=== PATIENT | female | born 1995 | race African-American/Black ===

== ENCOUNTER 2017-09-17 23:18 | Emergency (ER) | payer SELFPAY ==
[2017-09-18 00:11] LABS: ABSOLUTE BASOPHILS # (AUTO) 0.1 10^3/uL (0.0-0.2); ABSOLUTE EOSINOPHILS # (AUTO) 0.2 10^3/uL (0.0-0.6); ABSOLUTE LYMPHOCYTES (AUTO) 2.6 10^3/uL (0.5-4.7); ABSOLUTE MONOCYTES (AUTO) 0.4 10^3/uL (0.1-1.4); ABSOLUTE NEUT (AUTO) 2.9 10^3/uL (1.7-8.2); EOSINOPHILS % (AUTO) 2.8 % (0-6); HEMATOCRIT 37.4 % (36.0-47.0); HEMOGLOBIN 12.4 g/dL (12.0-15.5); LYMPHOCYTES % (AUTO) 42.1 % (13-45); MEAN CORPUSCULAR HEMOGLOBIN 27.2 pg (27.0-33.4); MEAN CORPUSCULAR VOLUME 82 fl (80-97); MONOCYTES % (AUTO) 6.1 % (3-13); PLATELET COUNT 238 10^3/uL (150-450); RED BLOOD COUNT 4.54 10^6/uL (3.72-5.28); RED CELL DISTRIBUTION WIDTH 16.1 % (11.5-14.0); TOTAL CELLS COUNTED % (AUTO) 100 %; WHITE BLOOD COUNT 6.1 10^3/uL (4.0-10.5)
[2017-09-18 00:26] LABS: ALANINE AMINOTRANSFERASE 26 U/L (9-52); ALBUMIN 3.6 g/dL (3.5-5.0); ALKALINE PHOSPHATASE 47 U/L (38-126); ANION GAP 5 (5-19); ASPARTATE AMINO TRANSFERASE 33 U/L (14-36); BILIRUBIN,DIRECT 0.2 mg/dL (0.0-0.4); BILIRUBIN,TOTAL 0.2 mg/dL (0.2-1.3); BLOOD UREA NITROGEN 12 mg/dL (7-20); CALCIUM 9.3 mg/dL (8.4-10.2); CARBON DIOXIDE 29 mmol/L (22-30); CHLORIDE 107 mmol/L (98-107); GLUCOSE 99 mg/dL (75-110); POTASSIUM 4.3 mmol/L (3.6-5.0); TOTAL PROTEIN 6.4 g/dL (6.3-8.2)
[2017-09-18 00:50] LABS: BILIRUBIN,URINE NEGATIVE (NEGATIVE); COLOR,URINE YELLOW; GLUCOSE, URINE NEGATIVE (NEGATIVE); KETONES,URINE NEGATIVE (NEGATIVE); LEUKOCYTE ESTERASE,URINE NEGATIVE (NEGATIVE); NITRITE,URINE NEGATIVE (NEGATIVE); PROTEIN,URINE NEGATIVE (NEGATIVE); UROBILINOGEN,URINE NEGATIVE mg/dL (<2.0)
[2017-09-18 00:51] LABS: APPEARANCE,URINE CLEAR
--- NOTE | 2017-09-18 01:00 | ER Document Report ---
ED General - General Chief Complaint: Abdominal Pain Stated Complaint: ABDOMINAL PAIN Time Seen by Provider: 09/17/17 23:52 Mode of Arrival: Ambulatory Information source: Patient Notes: Patient presents emergency department with complaints of chronic abdominal pain. She reports pain from her incision. Denies fever vomiting diarrhea. Reports she is eating drinking as normal. Denies vaginal discharge, denies pain with void. Reports she wasn't going to come here but since she brought her son here for a fever she thought she would have it checked out. Reports she has had her [employer] look at it before and has been told that it is scar tissue. - HPI Onset: Other Onset/Duration: Persistent, Waxing and waning Severity: None Pain Level: Denies - denies pain now Associated symptoms: None Exacerbated by: Denies Relieved by: Denies Similar symptoms previously: Yes Recently seen / treated by doctor: No - Related Data Allergies/Adverse Reactions: Penicillins Allergy (Verified 09/17/17 23:28) Past Medical History - General Information source: Patient Last Menstrual Period: 08/27/17 - Social History Smoking Status: Current Every Day Smoker Cigarette use (# per day): Yes Chew tobacco use (# tins/day): No Frequency of alcohol use: Occasional Drug Abuse: None Lives with: Family Family History: Reviewed & Not Pertinent Patient has suicidal ideation: No Patient has homicidal ideation: No Pulmonary Medical History: Reports: Hx Asthma Renal/ Medical History: Denies: Hx Peritoneal Dialysis Past Surgical History: Reports: Hx Section - 1, Hx Tonsillectomy Review of Systems - Review of Systems Notes: Review HPI for review of systems., All other systems negative Physical Exam - Vital signs Vitals: Temp Pulse Resp BP Pulse Ox 98.5 F 67 18 133/81 H 97 09/17/17 23:32 09/17/17 23:32 09/17/17 23:32 09/17/17 23:32 09/17/17 23:32 - Notes Notes: PHYSICAL EXAMINATION: GENERAL: Well-appearing and in no acute distress HEAD: Atraumatic, normocephalic. EYES: Pupils equal round and reactive to light, extraocular movements intact, sclera anicteric, conjunctiva are normal. ENT: nares patent, oropharynx clear without exudates. Moist mucous membranes. NECK: Normal range of motion, supple without lymphadenopathy LUNGS: CTAB and equal. No wheezes rales or rhonchi. HEART: Regular rate and rhythm without murmurs ABDOMEN: Soft, no tenderness. No guarding, no rebound no erythema, warmth, no tenderness with palpation EXTREMITIES: Normal range of motion, no pitting edema. No cyanosis. NEUROLOGICAL: Cranial nerves grossly intact. Normal sensory/motor exams. PSYCH: Normal mood, normal affect. SKIN: Warm, Dry, normal turgor, no rashes or lesions noted Course - Re-evaluation Re-evalutation: 09/18/17 this seems to be a chronic issue, pt denies pain at this time, labs unremarkable , pt was instructed to fu with pcp for further c/o. - Vital Signs Vital signs: Temp Pulse Resp BP Pulse Ox 98.6 F 89 19 128/78 H 99 09/18/17 02:00 09/18/17 02:00 09/18/17 02:00 09/18/17 02:00 09/18/17 02:00 - Laboratory Result Diagrams: 09/17/17 23:59 09/17/17 23:59 Laboratory results interpreted by me: 09/17/17 23:59 RDW 16.1 H Discharge - Discharge Clinical Impression: Abdominal pain, Elevated blood pressure reading Condition: Stable Disposition: HOME, SELF-CARE Instructions: Abdominal Pain ([facility]) Additional Instructions: *You have been evaluated for abdominal pain *Follow up with your primary care provider within one week for recheck *Return to ED for worsening condition, changes, needs Forms: Elevated Blood Pressure
[2017-09-18 02:01] VITALS: BP 128/78
--- NOTE | 2017-09-19 12:37 | EKG REPORT ---
SEVERITY:- ABNORMAL ECG - SINUS RHYTHM ABNORMAL Q SUGGESTS ANTERIOR INFARCT : Confirmed by: Rosa M Sousa MD 19-Sep-2017 12:36:38
== END 2017-09-18 02:01 | disposition home or self-care (01) ==
LOC: ER 23:18
DX: R10.9 Unspecified abdominal pain (principal); R03.0 Elevated blood-pressure reading, without diagnosis of hypertension; F17.210 Nicotine dependence, cigarettes, uncomplicated; J45.909 Unspecified asthma, uncomplicated; Z98.890 Other specified postprocedural states; Z88.0 Allergy status to penicillin
CPT/HCPCS: 36415; 80053; 81001; 84703; 85025; 93005; 93010; 99284

== ENCOUNTER 2017-10-25 21:43 | Emergency (ER) | payer SELFPAY ==
--- NOTE | 2017-10-26 00:46 | ER Document Report ---
ED Medical Screen (RME) - General Chief Complaint: Headache Stated Complaint: HEADACHE,BLOOD PRESSURE PROBLEM Time Seen by Provider: 10/26/17 00:43 Mode of Arrival: Ambulatory Information source: Patient Notes: 22-year-old female presents to ED for complaint headache that started earlier today. She states she took some Excedrin before going to work and then around 7 PM she started having blurred vision but the blurred vision is gone now she just has a mild headache. She states she has not had any nausea or vomiting. I have greeted and performed a rapid initial assessment of this patient. A comprehensive ED assessment and evaluation of the patient, analysis of test results and completion of medical decision making process will be conducted by an additional ED providers. TRAVEL OUTSIDE OF THE [place] IN LAST 30 DAYS: No - Related Data Allergies/Adverse Reactions: Penicillins Allergy (Verified 09/17/17 23:28) Past Medical History Pulmonary Medical History: Reports: Hx Asthma Renal/ Medical History: Denies: Hx Peritoneal Dialysis Past Surgical History: Reports: Hx Section - 1, Hx Tonsillectomy
[2017-10-26] MEDS ORDERED: DIPHENHYDRAMINE HCL 50 MG CAPSULE PO ONE (00:53)
[2017-10-26] MEDS ORDERED: METOCLOPRAMIDE HCL 10 MG TABLET PO ONE (00:53)
--- NOTE | 2017-10-26 00:55 | ER Document Report ---
ED Headache - General Chief Complaint: Headache Stated Complaint: HEADACHE,BLOOD PRESSURE PROBLEM Time Seen by Provider: 10/26/17 00:43 Mode of Arrival: Ambulatory Information source: Patient Notes: Patient is a 22-year-old female who presents to the ER today for headache that started today. Patient states she has a history of headaches but she does not take anything for it. Patient states that she does not even really want to be here but that her work made her come because they were worried about her headache. She denies any dizziness, nausea, vomiting, fever, chills, neck pain or any other symptoms. TRAVEL OUTSIDE OF THE [place] IN LAST 30 DAYS: No - Related Data Allergies/Adverse Reactions: Penicillins Allergy (Verified 09/17/17 23:28) Past Medical History - General Information source: Patient - Social History Smoking Status: Never Smoker Family History: Reviewed & Not Pertinent Pulmonary Medical History: Reports: Hx Asthma Renal/ Medical History: Denies: Hx Peritoneal Dialysis Past Surgical History: Reports: Hx Section - 1, Hx Tonsillectomy Review of Systems - Review of Systems Constitutional: No symptoms reported EENT: No symptoms reported Cardiovascular: No symptoms reported Respiratory: No symptoms reported Gastrointestinal: No symptoms reported Genitourinary: No symptoms reported Female Genitourinary: No symptoms reported Musculoskeletal: No symptoms reported Skin: No symptoms reported Hematologic/Lymphatic: No symptoms reported Neurological/Psychological: See HPI Physical Exam - Notes Notes: PHYSICAL EXAMINATION: GENERAL: Well-appearing and in no acute distress. HEAD: Atraumatic, normocephalic. EYES: Pupils equal round and reactive to light, extraocular movements intact, sclera anicteric, conjunctiva are normal. ENT: ear canals without erythema or foreign body, TMs pearly seals with good bony landmarks, nares patent, oropharynx clear without exudates. Moist mucous membranes. NECK: Normal range of motion, supple without lymphadenopathy LUNGS: CTAB and equal. No wheezes rales or rhonchi. HEART: Regular rate and rhythm without murmurs ABDOMEN: Soft, no tenderness. No guarding, no rebound BACK: no vertebral tenderness, normal ROM GI/: no CVA tenderness EXTREMITIES: Normal range of motion, no pitting edema. No cyanosis. NEUROLOGICAL: Cranial nerves grossly intact. Normal sensory/motor exams. Good and equal strength bilaterally, Kernig and Brudzinski's signs negative, Romberg' s test normal, normal heel to fry testing PSYCH: Normal mood, normal affect. SKIN: Warm, Dry, normal turgor, no rashes or lesions noted Course - Re-evaluation Re-evalutation: 10/26/17 00:54 Patient feels fine and would like to go home, she wants no further evaluation today. Discharge - Discharge Clinical Impression: Headache Qualifiers: Headache type: unspecified Headache chronicity pattern: acute headache Intractability: not intractable Qualified Code(s): R51 - Headache Condition: Stable Disposition: HOME, SELF-CARE Additional Instructions: Return immediately for any new or worsening symptoms. Follow up with primary care provider, call tomorrow to make followup appointment. Forms: Return to Work
[2017-10-26 01:27] VITALS: BP 157/86
== END 2017-10-26 01:27 | disposition home or self-care (01) ==
LOC: ER 21:43
DX: R51 Headache (principal); Z88.0 Allergy status to penicillin
CPT/HCPCS: 99284

== ENCOUNTER 2017-11-29 21:20 | Emergency (ER) | payer SELFPAY ==
--- NOTE | 2017-11-29 22:48 | RADIOLOGY REPORT (SQ) ---
EXAM DESCRIPTION: L SPINE WHOLE COMPLETED DATE/TIME: 11/29/2017 10:36 pm REASON FOR STUDY: BACK PAIN COMPARISON: None. NUMBER OF VIEWS: Five views including obliques. TECHNIQUE: AP, lateral, oblique, and sacral radiographic images acquired of the lumbar spine. LIMITATIONS: None. FINDINGS: MINERALIZATION: Normal. SEGMENTATION: Normal. No transitional anatomy. ALIGNMENT: Normal. VERTEBRAE: Maintained height. No fracture or worrisome bone lesion. DISCS: Preserved height. No significant osteophytes or end plate irregularity. POSTERIOR ELEMENTS: Pedicles and facets are intact. No pars defect or posterior arch defects. HARDWARE: None in the spine. PARASPINAL SOFT TISSUES: Normal. PELVIS: There is mild sclerosis on both sides of the right sacroiliac joint. OTHER: No other significant finding. IMPRESSION: Normal lumbar spine. Possible right sacroiliitis. TECHNICAL DOCUMENTATION: JOB ID: [id number] [employer]- All Rights Reserved Reading location - IP/workstation name: [email or web address]
[2017-11-29] MEDS ORDERED: METHOCARBAMOL 750 MG TABLET PO ONE (23:43)
[2017-11-29] MEDS ORDERED: TRAMADOL HCL 50 MG TABLET PO ONE (23:43)
--- NOTE | 2017-11-29 23:48 | ER Document Report ---
ED General - General Chief Complaint: Back Pain Stated Complaint: BACK PAIN Time Seen by Provider: 11/29/17 23:25 Mode of Arrival: Ambulatory Information source: Patient TRAVEL OUTSIDE OF THE [place] IN LAST 30 DAYS: No - HPI Notes: Patient presents with report of lower back pain with radiation down the right leg that she has had for several months. The patient has been seen at outside facility and reports she had a CT scan which showed an old coccyx fracture and evidence for a L5 disc herniation, but she has not had a MRI performed. She denies any incontinence or motor weakness or abdominal pain or dysuria. She denies any recent trauma. The patient reports no fever or chills. She states that heavy lifting and sitting an extended period of time makes her pain worse. The patient does smoke. The patient denies any chest pain or difficulty breathing. - Related Data Allergies/Adverse Reactions: Penicillins Allergy (Verified 09/17/17 23:28) Past Medical History - General Information source: Patient - Social History Smoking Status: Current Every Day Smoker Chew tobacco use (# tins/day): No Frequency of alcohol use: Social Drug Abuse: None Lives with: Family Family History: Reviewed & Not Pertinent Patient has suicidal ideation: No Patient has homicidal ideation: No Pulmonary Medical History: Reports: Hx Asthma Renal/ Medical History: Denies: Hx Peritoneal Dialysis Past Surgical History: Reports: Hx Section - 3, Hx Tonsillectomy Review of Systems - Review of Systems Notes: REVIEW OF SYSTEMS: CONSTITUTIONAL : Denies fever, chills, or sweats. Denies recent illness. EENT: Denies eye, ear, throat, or mouth pain or symptoms. Denies nasal or sinus congestion or discharge. Denies throat, tongue, or mouth swelling or difficulty swallowing. CARDIOVASCULAR: Denies chest pain. Denies palpitations or racing or irregular heart beat. Denies ankle edema. RESPIRATORY: Denies cough, cold, or chest congestion. Denies shortness of breath, difficulty breathing, or wheezing. GASTROINTESTINAL: Denies abdominal pain or distention. Denies nausea, vomiting , or diarrhea. Denies blood in vomitus, stools, or per rectum. Denies black, tarry stools. Denies constipation. GENITOURINARY: Denies difficulty urinating, painful urination, burning, frequency, blood in urine, or discharge. FEMALE GENITOURINARY: Denies vaginal bleeding, heavy or abnormal periods, irregular periods. Denies vaginal discharge or odor. MUSCULOSKELETAL: Denies neck pain or stiffness. Denies joint pain or swelling. SKIN: Denies rash, lesions or sores. HEMATOLOGIC : Denies easy bruising or bleeding. LYMPHATIC: Denies swollen, enlarged glands. NEUROLOGICAL: Denies confusion or altered mental status. Denies passing out or loss of consciousness. Denies dizziness or lightheadedness. Denies headache. Denies weakness or paralysis or loss of use of either side. Denies problems with gait or speech. Denies sensory loss, numbness, or tingling. Denies seizures. PSYCHIATRIC: Denies anxiety or stress. Denies depression, suicidal ideation, or homicidal ideation. ALL OTHER SYSTEMS REVIEWED AND NEGATIVE. Dictation was performed using [employer] voice recognition software Physical Exam - Vital signs Vitals: Temp Pulse Resp BP Pulse Ox 97.7 F 69 16 148/83 H 100 11/29/17 22:17 11/29/17 22:17 11/29/17 22:17 11/29/17 22:17 11/29/17 22:17 - Notes Notes: PHYSICAL EXAMINATION: GENERAL: Well-appearing, well-nourished and in no acute distress. HEAD: Atraumatic, normocephalic. EYES: Pupils equal round and reactive to light, extraocular movements intact, conjunctiva are normal. ENT: Nares patent, oropharynx clear without exudates. Moist mucous membranes. NECK: Normal range of motion, supple without lymphadenopathy LUNGS: Breath sounds clear to auscultation bilaterally and equal. No wheezes rales or rhonchi. HEART: Regular rate and rhythm without murmurs ABDOMEN: Soft, nontender, nondistended abdomen. No guarding, no rebound. No masses appreciated. Female : deferred Musculoskeletal: Normal range of motion, no pitting or edema. No cyanosis. Patient has pain appreciated L4 L5-S1 region radiating to the right sacral region and down a L5 distribution. There is no bony deformity or crepitance or erythema. NEUROLOGICAL: Cranial nerves grossly intact. Normal speech, normal gait. Normal sensory, motor exams. No significant pain on straight leg raise testing. No motor deficits. The patient has a radicular complaint down the L5 region, but there is no sensory deficit or motor deficit appreciated. PSYCH: Normal mood, normal affect. SKIN: Warm, Dry, normal turgor, no rashes or lesions noted. Course - Re-evaluation Re-evalutation: No evidence for cauda equina syndrome or acute fracture clinically. X-ray shows a right sacroiliitis. Question a herniated disc pathology. - Vital Signs Vital signs: Temp Pulse Resp BP Pulse Ox 97.7 F 69 16 148/83 H 100 11/29/17 22:17 11/29/17 22:17 11/29/17 22:17 11/29/17 22:17 11/29/17 22:17 Discharge - Discharge Clinical Impression: Sacro-iliac pain Condition: Stable Disposition: HOME, SELF-CARE Instructions: Low Back Pain ([facility]) Additional Instructions: You need to follow-up MRI of the lumbar spine. Prescriptions: Methocarbamol [Robaxin 750 mg Tablet] 750 mg PO Q6HP PRN #20 tablet PRN Reason: Tramadol HCl [Ultram 50 mg Tablet] 50 mg PO Q6HP PRN #30 tablet PRN Reason: Ibuprofen 800 mg PO Q8HP PRN #30 tablet PRN Reason: Forms: Return to Work
[2017-11-30 00:22] VITALS: BP 148/76
== END 2017-11-30 00:05 | disposition home or self-care (01) ==
LOC: ER 21:20
DX: M53.3 Sacrococcygeal disorders, not elsewhere classified (principal); M54.5 Low back pain; M54.9 Dorsalgia, unspecified; M79.604 Pain in right leg; F17.200 Nicotine dependence, unspecified, uncomplicated
CPT/HCPCS: 99283; 72110; J3490

== ENCOUNTER 2017-12-01 18:04 | Emergency (ER) | payer SELFPAY ==
--- NOTE | 2017-12-01 19:01 | ER Document Report ---
ED Neck/Back Problem - General Chief Complaint: Low Back Pain Stated Complaint: BACK PAIN Time Seen by Provider: 12/01/17 18:43 Mode of Arrival: Ambulatory Information source: Patient TRAVEL OUTSIDE OF THE [place] IN LAST 30 DAYS: No - HPI Patient complains to provider of: Pain, Lower back Onset: Last week Notes: Patient is here with complaints of right low back pain radiating down her right leg for the last week. She denies any traumatic injury. She was seen here 2 days ago and had x-ray showing right-sided sacroiliitis. She was discharged home on Ultram and relaxer's. She states the pain has not gotten any better. She does a lot of heavy lifting and pushing at work, and is concerned that this is flaring up her back. She states that she would like to go to work, but she would would like a note saying that she can be on light duty to help her back rest. She denies being on blood thinners. She denies fever. She denies bowel or bladder dysfunction. She denies IV drug use. She denies chest pain or shortness of breath. No abdominal pain. No nausea vomiting diarrhea no dysuria or hematuria. Pain is worse with movement, nothing seems to make it better. She states that she has been taking 1 ibuprofen 3 times a day without any relief. - Related Data Allergies/Adverse Reactions: Penicillins Allergy (Verified 12/01/17 18:04) Past Medical History - Social History Smoking Status: Unknown if Ever Smoked Family History: Reviewed & Not Pertinent Pulmonary Medical History: Reports: Hx Asthma Renal/ Medical History: Denies: Hx Peritoneal Dialysis Past Surgical History: Reports: Hx Section - 3, Hx Tonsillectomy Review of Systems - Review of Systems -: Yes All other systems reviewed and negative Physical Exam - Vital signs Vitals: Temp Pulse Resp BP Pulse Ox 98.6 F 69 18 152/107 H 99 12/01/17 18:07 12/01/17 18:07 12/01/17 18:07 12/01/17 18:07 12/01/17 18:07 - Notes Notes: GENERAL: alert, cooperative, nontoxic, no distress. HEAD: normocephalic, atraumatic EYES: conjunctiva pink without discharge, no external redness or swelling. EARS: no external swelling, no external redness NOSE: atraumatic, no external swelling MOUTH/THROAT: mucous membranes moist and pink, posterior pharynx without erythema, swelling, exudate. No trismus or drooling. NECK: soft, supple, full range of motion, no meningismus. CHEST: no distress, lungs clear and equal throughout. No wheezing, rales, rhonchi. CARDIAC: regular rate and rhythm, no murmur, normal capillary refill, normal pulses. No peripheral edema noted. ABDOMEN: soft, nontender, no pusatile mass. BACK: No CVA tenderness. Tenderness to the right SI joint. Slightly limited range of motion secondary to pain. No swelling or redness. No rash. EXTREMITIES: full range of motion of all extremities. No redness, no swelling. NEURO: alert and oriented A&O x 3, no focal deficits, full range of motion of all extremities. 5 out of 5 flexion and extension of the lower extremities bilaterally. Patellar and Achilles deep tendon reflexes are +2 bilaterally. Normal sensation with no saddle anesthesia. Patient can dorsiflex the great toes bilaterally. PYSCH: appropriate mood, affect. Patient is cooperative. SKIN: pink, warm, dry, no rash. Course - Re-evaluation Re-evalutation: 12/01/17 18:58 Patient is nontoxic appearing with stable vitals. She is here with complaints of right-sided low back pain rating down the right leg. No trauma. No sign of cauda equina, epidural abscess/bleed, AAA, discitis, osteomyelitis. X-ray from 2 days ago shows right-sided sacroiliitis. She was discharged home on Ultram and muscle relaxers. Believe that she would benefit from NSAIDs. I will prescribe her Naprosyn that I instructed her to take consistently to help decrease inflammation. She verbalized an understanding of this. She will be given a work note for light duty for 1 week, follow-up with her primary care doctor at the next available appointment. She was instructed to follow-up sooner for increasing pain, high fever, difficulty controlling her bowels or bladder, persistent vomiting, or for any further concerns. The patient's emergency department workup and current diagnosis were explained to the patient and or family. Follow-up instructions were provided. Medications if prescribed were discussed. Instructions for when to return to the emergency department including specific worrisome symptoms were discussed with the patient and/or family. The patient is noted to have elevated blood pressure during today's emergency department visit. The patient was informed of this finding. The patient was instructed that this may be related to pre-hypertension and requires further evaluation with a primary care provider. The patient has no hypertensive symptoms at this time. - Vital Signs Vital signs: Temp Pulse Resp BP Pulse Ox 98.6 F 69 18 152/107 H 99 12/01/17 18:07 12/01/17 18:07 12/01/17 18:07 12/01/17 18:07 12/01/17 18:07 Discharge - Discharge Clinical Impression: Sacroiliitis, Lumbar radiculopathy, acute Condition: Stable Disposition: HOME, SELF-CARE Instructions: Low Back Pain ([facility]), Radiculopathy ([facility]) Additional Instructions: Take medications as prescribed. Drink plenty of fluids. Avoid heavy lifting. Follow-up with your doctor in 1 week for recheck. Follow-up sooner for increasing pain, high fever, persistent vomiting, difficulty controlling her bowels or bladder, or for any further concerns. Your blood pressure was elevated during today's visit. Have this rechecked with your doctor. Prescriptions: Naproxen [Naprosyn] 500 mg PO BID #20 tablet Forms: Elevated Blood Pressure, Smoking Cessation Education, Return to Work Referrals: [facility] [Provider Group] - Follow up as needed
[2017-12-01 19:19] VITALS: BP 168/103
== END 2017-12-01 19:19 | disposition home or self-care (01) ==
LOC: ER 18:04
DX: M46.1 Sacroiliitis, not elsewhere classified (principal); M54.16 Radiculopathy, lumbar region; Z88.0 Allergy status to penicillin
CPT/HCPCS: 99283

== ENCOUNTER 2017-12-20 23:21 | Emergency (ER) | payer SELFPAY ==
[2017-12-20 23:44] VITALS: BP 154/83
[2017-12-21] MEDS ORDERED: IBUPROFEN 600 MG TABLET PO ONE (00:07)
--- NOTE | 2017-12-21 00:11 | ER Document Report ---
ED General - General Chief Complaint: Back Pain Stated Complaint: BACK PAIN,PREVIOUS INJURY Time Seen by Provider: 12/21/17 00:00 Mode of Arrival: Ambulatory TRAVEL OUTSIDE OF THE [place] IN LAST 30 DAYS: No - HPI Notes: 22-year-old female with a history of previous sciatica and previous remote back injury which is poorly described presents with right lower back pain that radiates down her right leg. She describes onset over the last day and a half, gradual onset, sharp burning pain radiates down her right paralateral lumbar region into her buttocks and posterior lateral thigh. No direct injury. No direct numbness. No weakness. No fever, chills or sweats. There is no history of malignancy, no history of bowel or bladder dysfunction. No fever or constitutional symptoms. No history of IV drug abuse. - Related Data Allergies/Adverse Reactions: Penicillins Allergy (Verified 12/01/17 18:04) Past Medical History - General Information source: Patient - Social History Smoking Status: Unknown if Ever Smoked Lives with: Family Family History: Reviewed & Not Pertinent - Medical History Medical History: Other - Negative except for previous sciatica Pulmonary Medical History: Reports: Hx Asthma Renal/ Medical History: Denies: Hx Peritoneal Dialysis Past Surgical History: Reports: Hx Section - 3, Hx Tonsillectomy Review of Systems - Review of Systems Notes: Review of systems as in history of present illness otherwise negative Physical Exam - Vital signs Vitals: Temp Pulse Resp BP Pulse Ox 98.4 F 64 16 154/83 H 99 12/20/17 23:21 12/20/17 23:21 12/20/17 23:21 12/20/17 23:21 12/20/17 23:21 - Notes Notes: General: Well devloped, no acute distress. HEENT: Normocephalic, atraumatic. Pupils equal round reactive to light. Mucosa moist. No JVD. Chest: No trauma, normal excursion. Respiratory: Good air exchange, normal excursion. Cardiac: Regular rhythm Abdomen: Soft, benign. Nondistended. Back: No asymmetry or gross abnormality. Paralumbar tenderness. Motor: Grossly normal power and tone. Neurologic: Alert, nonfocal. 2+ DTRs of the knees, 1+ at the ankles. Sensation intact and symmetric in lower extremities. Will vocal straight leg raise. Vascular: Well perfused Skin: No petechiae or purpura Course - Re-evaluation Re-evalutation: 12/21/17 00:15 Well-appearing female in the after mentioned symptoms. May be lumbar radiculopathy and sciatica or lumbar go with sciatica. This point there are no high-risk features, no indication for imaging. Will treat with NSAIDs, Flexeril , steroid Dosepak, outpatient follow-up. - Vital Signs Vital signs: Temp Pulse Resp BP Pulse Ox 98.4 F 64 16 154/83 H 99 12/20/17 23:21 12/20/17 23:21 12/20/17 23:21 12/20/17 23:21 12/20/17 23:21 Discharge - Discharge Clinical Impression: Back pain Qualifiers: Back pain location: low back pain Chronicity: acute Back pain laterality: right Sciatica presence: with sciatica Sciatica laterality: sciatica of right side Qualified Code(s): M54.41 - Lumbago with sciatica, right side Condition: Good Disposition: HOME, SELF-CARE Instructions: Low Back Pain ([facility]), Sciatica ([facility]) Prescriptions: Ibuprofen [Motrin 600 mg Tablet] 600 mg PO Q8HP PRN 3 Days tablet PRN Reason: Cyclobenzaprine HCl [Flexeril 10 mg Tablet] 10 mg PO TIDP PRN #15 tab PRN Reason: Methylprednisolone [Medrol Dosepack (4 mg/Tab) 21 Tab/Dosepak] 4 mg PO ASDIR PRN #21 tab.ds.pk PRN Reason:
== END 2017-12-21 00:19 | disposition home or self-care (01) ==
LOC: ER 23:21
DX: M54.41 Lumbago with sciatica, right side (principal); J45.909 Unspecified asthma, uncomplicated; Z87.828 Personal history of other (healed) physical injury and trauma; Z88.0 Allergy status to penicillin
CPT/HCPCS: 99283

== ENCOUNTER 2018-09-06 09:01 | Emergency (ER) | payer SELFPAY ==
[2018-09-06] MEDS ORDERED: IBUPROFEN 800 MG TABLET PO ONE (10:09)
--- NOTE | 2018-09-06 10:13 | ER Document Report ---
ED Extremity Problem, Lower - General Chief Complaint: Knee Injury Stated Complaint: LEFT KNEE PAIN Time Seen by Provider: 09/06/18 09:32 Mode of Arrival: Ambulatory Information source: Patient Notes: 23-year-old female presented to ED for complaint of pain to her left knee. She states that she was lifting something heavy and twisted and twisted her knee. She is alert oriented respirations regular and unlabored speaking in full sentences. Patient states she does not work outside of the home she takes care of her small children. TRAVEL OUTSIDE OF THE [place] IN LAST 30 DAYS: No - HPI Patient complains to provider of: Injury, Pain. No: Swelling Location: Knee - Left knee Occurred: Yesterday Where: Home, Outdoors Onset/Duration: Sudden Quality of pain: Sharp Severity: Severe Pain Level: 5 Context: Twisted Recent injury: Possibly Associated symptoms: Painful ambulation Exacerbated by: Movement, Walking Relieved by: Elevation - Related Data Allergies/Adverse Reactions: Penicillins Allergy (Verified 12/01/17 18:04) Past Medical History - General Information source: Patient - Social History Smoking Status: Current Every Day Smoker Cigarette use (# per day): Yes Chew tobacco use (# tins/day): No - 1/2 pack/day Smoking Education Provided: Yes Frequency of alcohol use: None Drug Abuse: None Occupation: Unemployed Lives with: Family - Lives alone with her children Family History: Reviewed & Not Pertinent Patient has suicidal ideation: No Patient has homicidal ideation: No Pulmonary Medical History: Reports: Hx Asthma EENT Medical History: Reports: None Neurological Medical History: Reports: None Endocrine Medical History: Reports: None Renal/ Medical History: Reports: None Malignancy Medical History: Reports: None GI Medical History: Reports: None Musculoskeletal Medical History: Reports None Skin Medical History: Reports None Psychiatric Medical History: Reports: None Traumatic Medical History: Reports: None Infectious Medical History: Reports: None Past Surgical History: Reports: Hx Section - 3, Hx Tonsillectomy Review of Systems - Review of Systems Constitutional: No symptoms reported EENT: No symptoms reported Cardiovascular: No symptoms reported Respiratory: No symptoms reported Gastrointestinal: No symptoms reported Genitourinary: No symptoms reported Female Genitourinary: No symptoms reported Musculoskeletal: Joint pain. denies: Joint swelling - Left knee Skin: No symptoms reported Hematologic/Lymphatic: No symptoms reported Neurological/Psychological: No symptoms reported -: Yes All other systems reviewed and negative Physical Exam - Vital signs Vitals: Temp Pulse Resp BP Pulse Ox 98.3 F 81 15 129/60 H 99 09/06/18 09:07 09/06/18 09:07 09/06/18 09:07 09/06/18 09:07 09/06/18 09:07 Interpretation: Normal - General General appearance: Appears well, Alert - HEENT Head: Normocephalic, Atraumatic Eyes: Normal Pupils: PERRL - Respiratory Respiratory status: No respiratory distress Chest status: Nontender Breath sounds: Normal Chest palpation: Normal - Cardiovascular Rhythm: Regular Heart sounds: Normal auscultation Murmur: No - Abdominal Inspection: Normal Distension: No distension Bowel sounds: Normal Tenderness: Nontender Organomegaly: No organomegaly - Back Back: Normal, Nontender - Extremities General upper extremity: Normal inspection, Nontender, Normal color, Normal ROM , Normal temperature General lower extremity: Normal inspection, Normal color, Normal ROM, Normal temperature. No: Ras's sign Knee: Tender, Pain with ROM, Patellar tendon intact, Tender joint line. No: Abrasion, Deformity, Dislocation, Drawer's test instability, Ecchymosis, Instability, Joint effusion, Laceration, Laxity with valgus stress, Laxity with varus stress, Popliteal fossa tender - Painful ambulation, Unable to bear weight - Neurological Neuro grossly intact: Yes Cognition: Normal Orientation: AAOx4 [place] Coma Scale Eye Opening: Spontaneous [place] Coma Scale Verbal: Oriented [place] Coma Scale Motor: Obeys Commands [place] Coma Scale Total: 15 Speech: Normal Motor strength normal: LUE, RUE, LLE, RLE Sensory: Normal - Psychological Associated symptoms: Normal affect, Normal mood - Skin Skin Temperature: Warm Skin Moisture: Dry Skin Color: Normal Course - Vital Signs Vital signs: Temp Pulse Resp BP Pulse Ox 98.3 F 68 15 125/63 96 09/06/18 09:07 09/06/18 11:19 09/06/18 09:07 09/06/18 11:19 09/06/18 11:19 - Diagnostic Test Radiology reviewed: Image reviewed, Reports reviewed Procedures - Immobilization Left Knee Time completed: 10:35 Pre-Proc Neuro Vasc Exam: Normal Immobilizer type: Crutches, Knee immobilizer Performed by: PCT Post-Proc Neuro Vasc Exam: Normal Alignment checked and good: Yes Discharge - Discharge Clinical Impression: Knee effusion, left Left knee injury Qualifiers: Encounter type: initial encounter Qualified Code(s): S89.92XA - Unspecified injury of left lower leg, initial encounter Condition: Stable Disposition: HOME, SELF-CARE Additional Instructions: SUSPECTED INTERNAL KNEE INJURY: The examiner of your injured knee suspects an internal injury to the cartilage or internal ligaments. This must be further investigated by an cannon fire direction specialist. The knee should be protected, ice packed, and elevated while awaiting your follow-up exam by the orthopedist. If there is severe swelling, severe pain, or any new symptoms while awaiting your exam, you should call the orthopedist. (If he/she is unavailable, call us or return for re-examination.) KNEE IMMOBILIZING SPLINT: The knee immobilizing splint will protect the injury while healing begins. This type of splint does not allow the knee to bend at all. No running or sports will be possible. If the splint allows painfree walking, it's giving adequate protection. If there is still significant pain, crutches may be needed as well. Don't do anything that hurts. Adjusted the splint, if necessary. The stiffeners on the sides are attached with Velcro, so they can be easily moved to adjust for thigh and calf size. If you need help with these adjustments, come back. You will lose muscle strength in the thigh while using this splint. The doctor will advise you if it's safe to do isometric knee exercises while you use it. USE OF CRUTCHES: The doctor has recommended that you not bear weight at this time. You will need to use crutches. Adjust the crutches so the tops come to about two inches under the armpit while you are standing upright. Use your hands -- not your armpits -- to support your weight. To get into a chair, support yourself with one crutch on the injured side. Hold the chair with the other hand, then lower yourself while putting all your weight on the good leg. Going up stairs is `good leg up, step up, then bring up crutches and bad leg.' Down stairs is `bad leg and crutches down, then bring good leg down.' If you develop numbness or swelling in an arm or hand, you are using the crutches incorrectly. Return if you are having any problems with the crutches. ICE & ELEVATION: Apply ice packs frequently against the painful area. Many different schedules are recommended, such as "20 minutes on, 20 minutes off" or "one hour ice, two hours rest." If you need to work, you may need to go longer between ice treatments. You should plan to have the area ice packed AT LEAST one- fourth of the time. The ice should be applied over the wrap, tape, or splint, or over a layer of cloth -- not directly against the skin. Some ice bags have a built-in cloth and can be put directly on the skin. Your injured part should be elevated as much as possible over the next 48 hours. Try to keep the injury above the level of the heart. Avoid use of the injured area. Elevation and rest will decrease the swelling. USE OF MPAL-PTQ-BDOBOFG IBUPROFEN: Ibuprofen (Advil, Nuprin, Medipren, Motrin IB) is a medication for fever and pain control. In addition, it has anti- inflammatory effects which may be beneficial, especially in the treatment of injuries. It's best to take ibuprofen with food. Persons with ulcer disease or allergy to aspirin should notify their physician of this before taking ibuprofen. Ibuprofen can be given every four to six hours, for a total of four doses daily. Age Pain or fever dose Antiinflammatory dose 6-8 yr 200 mg (1 tab) 200 mg (1 tab) 9-11 yr 200 mg (1 tab) 200-400 mg (1-2 tab) 11-14 yr 200-400 mg (1-2 tab) 400 mg (2 tab) 15-adult 400 mg (2 tab) 600 mg (3 tab) FOLLOW-UP CARE: If you have been referred to a physician for follow-up care, call the physician s office for an appointment as you were instructed or within the next two days. If you experience worsening or a significant change in your symptoms, notify the physician immediately or return to the Emergency Department at any time for re-evaluation. Forms: Smoking Cessation Education, Return to Work Referrals: RHEA HERRERA, [ACTIVE STAFF] - Follow up as needed
--- NOTE | 2018-09-06 10:30 | RADIOLOGY REPORT (SQ) ---
EXAM DESCRIPTION: KNEE LEFT 4 VIEW COMPLETED DATE/TIME: 09/06/2018 9:45 am REASON FOR STUDY: twisted knee; popping sensation; unable to stand COMPARISON: None. NUMBER OF VIEWS: Four views. TECHNIQUE: AP, lateral, and both oblique radiographic images acquired of the left knee. LIMITATIONS: None. FINDINGS: MINERALIZATION: Normal. BONES: No acute fracture or dislocation. No worrisome bone lesions. JOINT: Small suprapatellar knee joint effusion SOFT TISSUES: No soft tissue swelling. No radio-opaque foreign body. OTHER: No other significant finding. IMPRESSION: Small suprapatellar knee joint effusion. No acute fracture or malalignment. TECHNICAL DOCUMENTATION: JOB ID: [id number] [employer]- All Rights Reserved Reading location - IP/workstation name: [email or web address]
[2018-09-06 11:22] VITALS: BP 125/63
== END 2018-09-06 11:28 | disposition home or self-care (01) ==
LOC: ER 09:01
DX: S89.92XA Unspecified injury of left lower leg, initial encounter (principal); M25.462 Effusion, left knee; F17.210 Nicotine dependence, cigarettes, uncomplicated; X50.0XXA Overexertion from strenuous movement or load, initial encounter; Y92.007 Garden or yard of unspecified non-institutional (private) residence as the place of occurrence of the external cause; Z88.0 Allergy status to penicillin
CPT/HCPCS: 99283; 73564; L1830